=== PATIENT | female | born 1960 | race African-American/Black ===

== ENCOUNTER 2019-10-11 07:38 | Day surgery (SDC) | payer OTHER ==
[2019-10-11 07:58] VITALS: BMI 37.2
[2019-10-11] MEDS ORDERED: ONDANSETRON 4 MG/2 ML VIAL IVPUSH PRN (10:57)
[2019-10-11] MEDS ORDERED: LACTATED RINGERS SOLUTION 1,000 ML IV SCH (11:00)
[2019-10-11] MEDS ORDERED: ceFAZolin SODIUM 1 GM VIAL IVPB ONE (11:30)
[2019-10-11] MEDS ORDERED: GENTAMICIN 80MG PREMIX BAG IVPB ONE (11:30)
[2019-10-11] MEDS ORDERED: GENTAMICIN SO4 80 MG/2 ML VIAL ONE (11:36)
--- NOTE | 2019-10-11 12:00 | CONS ---
DATE OF CONSULTATION: DATE OF DICTATION: 10/11/2019 HISTORY: Patient is a 59-year-old female with history of recurrent urinary tract infections, also history of nocturia, frequency, urgency. She denies dysuria. She also complains of lower abdominal pain. She does have history of bilateral renal cysts. She underwent a cystoscopy, and no tumor was found. The patient has undergone umbilical hernia surgery and appendectomy as well as a hysterectomy. She is G3, P3, postmenopausal. No allergies, ethanolism, or tobacco. PHYSICAL EXAMINATION: General: Reveals a well-developed female in no apparent distress. Abdomen: Soft. There is mild bilateral CVA tenderness. Genitourinary: Genitalia reveals a grade 1 cysto rectocele. John test is negative. Vaginal introitus is dry. Meatus is adequate. DIAGNOSTIC DATA: Patient's BUN 21 and creatinine 0.9. An ultrasound of the kidneys revealed bilateral grade 2 hydroureteronephrosis. Urinalysis was positive for blood. IMPRESSION: At present is a 59-year-old female with bilateral hydroureteronephrosis and micturition disorder. Must rule out cause for hydronephrosis including bilateral reflux or occult stone disease. PLAN: Patient will undergo a cystoscopy, bilateral retrograde pyelogram, possible bilateral ureteroscopies, and bilateral laser lithotripsies with placement of JJ stents. This was explained to patient in detail, and she agrees. REBECCA STEVENS M.D. [id number]
--- NOTE | 2019-10-11 12:21 | OP ---
Operative Note - Note: Operative Date: 10/11/19 Pre-Operative Diagnosis: erlinda. hydronephrosis, hematuria and low back pain Operation: cysto, erlinda. retrograde pyelograms, erlinda. ureteroscopy, rt. ureteral dilation and erlinda. jj stent insertions Findings: rt. upj-obstruction and lt. idiopathic hydronephrosis Post-Operative Diagnosis: Same as Pre-op Surgeon: Christina Diego Anesthesia: General Specimens Removed: urine Estimated Blood Loss (mls): 0 Drains & Tubes with Location: rt. and lt. jj stents 22cm-6f Drains, Volume Out (mls): 0 Blood Volume Replaced (mls): 0 Fluid Volume Replaced (mls): 0 Operative Report Dictated: Yes
--- NOTE | 2019-10-11 13:22 | OP ---
DATE OF OPERATION: 10/11/2019 PREOPERATIVE DIAGNOSES: Bilateral hydronephrosis, persistent microscopic hematuria, chronic low back pain. POSTOPERATIVE DIAGNOSIS: Right ureteropelvic junction obstruction, left idiopathic hydronephrosis, chronic cystitis, squamous metaplasia, atrophic vaginitis. OPERATIVE PROCEDURE: Cystoscopy with dilation, bilateral retrograde pyelograms, bilateral ureteroscopy, right ureteropelvic junction dilation, bilateral JJ stent placement. ANESTHESIA: General. Under above-stated anesthesia, patient is prepped and draped in the usual sterile manner. She is placed in the dorsal lithotomy position Inspection of the external genitalia revealed atrophic vaginalitis. The vaginal vestibule was pale and dry. The meatus was strictured. The meatus was dilated to 28-Cymraes without difficulty or bleeding. Cystoscopy revealed 200 mL of residual urine. This was sent for C and S. Inspection of the bladder revealed squamous metaplasia of the trigone. There was a grade 2 trabeculation throughout the bladder. No overt lesions or calculi were seen. Ureteral orifices were visualized. They were in their normal position with efflux of clear urine bilaterally. A Flexi-Tip catheter was placed into the right ureteral orifice. Contrast 5 mL was injected. This revealed a dilated right renal pelvis with an abrupt obstruction at the level of the ureteropelvic junction. The ureter appeared to be within normal limits and caliber. Delayed films revealed contrast was still in a dilated renal pelvis with calyceal blunting. Ureteroscopy was performed. Lower ureter was within normal limits. Ureteropelvic junction appeared to be stenosed; therefore, a ureteral balloon was inserted. The balloon was inflated to 18-Cymraes and left open for 10 minutes. Afterwards, the ureteroscope was removed. A 22-cm, 6-Cymraes JJ stent was left in place. X-rays confirmed good position of the stent. Ureteroscopy was performed on the left side. The lower ureter was within normal limits. The renal pelvis was dilated. There was no evidence of blockage or stricture. No lesions were found in the renal pelvis. Therefore, the ureteroscope was withdrawn. A 22-cm, 6-Cymraes left JJ stent was left in place. X-rays confirmed good position of the stent. The bladder was emptied. The scope was removed. The patient tolerated the procedure well. She returned to the recovery room in good condition. [id number]
[2019-10-11] MEDS ORDERED: ACETAMINOPHEN INJECTION 100 ML IVPB ONE (16:16)
[2019-10-11] MEDS ORDERED: ACETAMINOPHEN 1000 MG/100 ML VIAL (NON FORMULARY) IVPB ONE (16:22)
[2019-10-11] MEDS ORDERED: PHENAZOPYRIDINE HCL 100 MG TABLET (FP) ONE (16:36)
[2019-10-11 17:12] VITALS: BP 121/70; PULSE 73; TEMP 97.3
--- NOTE | 2019-10-13 12:47 | PATH ---
Cytology Non-Gynecological Report Patient Name: ANDREA HANSON [facility]. Rec. #: [id number] /Age/Gender: 1960 (Age: 59) / F Account: [id number] Location: [facility] SURGICAL Taken: 10/11/2019 Received: 10/12/2019 Reported: 10/13/2019 Physicians: Christina Diego M.D. Specimen(s) Received URINE Clinical History Chronic cystitis Final Diagnosis URINE FOR CYTOLOGY: SATISFACTORY FOR EVALUATION. NEGATIVE FOR HIGH GRADE UROTHELIAL CARCINOMA. SCATTERED UROTHELIAL CELLS, SQUAMOUS EPITHELIAL CELLS PRESENT. RARE RED BLOOD CELLS PRESENT. RARE UROTHELIAL FRAGMENTS PRESENT. FUNGAL FORMS (YEAST) PRESENT. Comment: Urothelial fragments are consistent with prior instrumentation. However, cytologic differential diagnosis includes: lithiasis and a low grade papillary neoplasm. Suggest clinical/radiologic and microbiology studies correlation. Electronically Signed Kamini Cummings M.D. Gross Description Approximately 30 cc of yellow fluid received fresh. One cytofunnel prepared and Pap stained.
== END 2019-10-11 17:29 | disposition home or self-care (01) ==
LOC: JASU-SURG 07:38
PROVIDERS: ATTEND Urology
PROC: 0T788DZ Dilation of Bilateral Ureters with Intraluminal Device, Via Natural or Artificial Opening Endoscopic (ICD-10-PCS; 2019-10-11)
PROC: 0T788DZ Dilation of Bilateral Ureters with Intraluminal Device, Via Natural or Artificial Opening Endoscopic (ICD-10-PCS; principal; 2019-10-11 10:00)
PROC: BT14ZZZ Fluoroscopy of Kidneys, Ureters and Bladder (ICD-10-PCS; 2019-10-11 10:00)
DX: N13.39 Other hydronephrosis (principal); N13.1 Hydronephrosis with ureteral stricture, not elsewhere classified; N30.20 Other chronic cystitis without hematuria; N32.89 Other specified disorders of bladder; N76.89 Other specified inflammation of vagina and vulva
CPT/HCPCS: 87077; 87086; 94760; J0131

== ENCOUNTER 2022-11-26 04:14 | Day surgery (SDC) | payer OTHER ==
[2022-11-24 17:15] VITALS: BMI 36.3
[~2022-11-26 04:14] MED LIST: ACETAMINOPHEN 325 MG TABLET (FP) PO PRN
[2022-11-26] MEDS ORDERED: EPINEPHrine/PF 1 MG/1 ML (1:1,000) AMPULE ONE (07:19)
[2022-11-26] MEDS ORDERED: POVIDONE-IODINE 5% OPHTHALMIC PREP 30 ML SOLUTION ONE (07:20)
[2022-11-26] MEDS ORDERED: LIDOCAINE HCL/PF 1% SDV 5ML VIAL ONE (07:20)
[2022-11-26] MEDS ORDERED: TETRACAINE 0.5% OPHTH SOLN 2 ML BOTTLE ONE (07:20)
[2022-11-26] MEDS ORDERED: KETOROLAC TROMETHAMINE 0.5% EYE DROP 1 DROP DROPS ONE (08:19)
[2022-11-26] MEDS ORDERED: TROPICAMIDE 1% OPHTH SOLN 15 ML BOTTLE ONE (08:19)
[2022-11-26] MEDS ORDERED: OFLOXACIN 0.3% OPHTHALMIC SOLUTION 5 ML BOTTLE ONE (08:19)
[2022-11-26] MEDS ORDERED: PHENYLEPHRINE 2.5% OPTHALMIC DROP 2ML BOTTLE ONE (08:19)
[2022-11-26] MEDS ORDERED: CYCLOPENTOLATE HCL 1% OPHTH SOLN 2 ML BOTTLE ONE (08:19)
[2022-11-26] MEDS: PHENYLEPHRINE 2.5% OPHTH SOLN 15 ML BOTTLE OP SCH ×3 (08:20→08:45)
[2022-11-26] MEDS: TROPICAMIDE 1% OPHTH SOLN 15 ML BOTTLE OP SCH ×3 (08:20→08:44)
[2022-11-26] MEDS: CYCLOPENTOLATE HCL 1% OPHTH SOLN 2 ML BOTTLE OP SCH ×3 (08:20→08:45)
[2022-11-26] MEDS: OFLOXACIN 0.3% OPHTHALMIC SOLUTION 5 ML BOTTLE OP SCH ×3 (08:20→08:45)
[2022-11-26] MEDS: KETOROLAC TROMETHAMINE 0.5% EYE DROP 1 DROP DROPS OP SCH ×3 (08:20→08:45)
[2022-11-26] MEDS ORDERED: MIDAZOLAM HCL 2 MG/2 ML SINGLE DOSE VIAL ONE ×2 (09:41→10:27)
[2022-11-26] MEDS ORDERED: TETRACAINE 0.5% OPHTH SOLN 2 ML BOTTLE TP ONE (10:11)
[2022-11-26] MEDS ORDERED: POVIDONE-IODINE 5% OPHTHALMIC PREP 30 ML SOLUTION OD ONE (10:15)
[2022-11-26] MEDS ORDERED: BSS (NA/CA/MG/K) BALANCED SALT SOLUTION OPHTH SOLN 15 ML BOTTLE OD ONE (10:22)
[2022-11-26] MEDS ORDERED: CHONDROITIN SU A/HYALUR SOD 1 KIT IO ONE (10:23)
[2022-11-26] MEDS ORDERED: LIDOCAINE HCL 1% PRESERVATIVE FREE - 30ML VIAL IO ONE (10:23)
[2022-11-26] MEDS ORDERED: TRYPAN BLUE 0.5 ML DISP.SYRIN IO ONE (10:24)
[2022-11-26] MEDS ORDERED: EPINEPHrine/PF 1 MG/1 ML (1:1,000) AMPULE SQ ONE (10:31)
[2022-11-26] MEDS ORDERED: ACETAMINOPHEN 325 MG TABLET (FP) ONE (11:06)
[2022-11-26 11:39] VITALS: BP 121/74; PULSE 61; RESP 18; TEMP 98.2
== END 2022-11-26 11:47 | disposition home or self-care (01) ==
LOC: JASU-SURG 04:14
PROVIDERS: ATTEND Ophthalmology
PROC: 08RJ3JZ Replacement of Right Lens with Synthetic Substitute, Percutaneous Approach (ICD-10-PCS; principal; 2022-11-26 10:00)
DX: H26.9 Unspecified cataract (principal)
CPT/HCPCS: V2632

== ENCOUNTER 2022-12-10 04:15 | Day surgery (SDC) | payer OTHER ==
[2022-12-09 09:39] VITALS: BMI 36.3
[2022-12-10] MEDS ORDERED: PHENYLEPHRINE 2.5% OPTHALMIC DROP 2ML BOTTLE ONE (07:03)
[2022-12-10] MEDS ORDERED: CYCLOPENTOLATE HCL 1% OPHTH SOLN 2 ML BOTTLE ONE ×2 (07:03→07:04)
[2022-12-10] MEDS ORDERED: KETOROLAC TROMETHAMINE 0.5% EYE DROP 1 DROP DROPS ONE (07:03)
[2022-12-10] MEDS ORDERED: TROPICAMIDE 1% 3 ML EYE DROPS ONE (07:04)
[2022-12-10] MEDS ORDERED: OFLOXACIN 0.3% OPHTHALMIC SOLUTION 5 ML BOTTLE ONE (07:04)
[2022-12-10] MEDS ORDERED: EPINEPHrine/PF 1 MG/1 ML (1:1,000) AMPULE ONE (07:12)
[2022-12-10] MEDS ORDERED: POVIDONE-IODINE 5% OPHTHALMIC PREP 30 ML SOLUTION ONE (07:13)
[2022-12-10] MEDS ORDERED: LIDOCAINE HCL/PF 1% SDV 5ML VIAL ONE (07:13)
[2022-12-10] MEDS ORDERED: TETRACAINE 0.5% OPHTH SOLN 2 ML BOTTLE ONE (07:13)
[2022-12-10 07:16] VITALS: RESP 18
[2022-12-10] MEDS: CYCLOPENTOLATE HCL 1% OPHTH SOLN 2 ML BOTTLE OP SCH ×3 (07:39→08:00)
[2022-12-10] MEDS: TROPICAMIDE 1% OPHTH SOLN 15 ML BOTTLE OP SCH ×3 (07:39→08:00)
[2022-12-10] MEDS: KETOROLAC TROMETHAMINE 0.5% EYE DROP 1 DROP DROPS OP SCH ×3 (07:39→08:00)
[2022-12-10] MEDS: OFLOXACIN 0.3% OPHTHALMIC SOLUTION 5 ML BOTTLE OP SCH ×3 (07:40→08:00)
[2022-12-10] MEDS: PHENYLEPHRINE 2.5% OPHTH SOLN 15 ML BOTTLE OP SCH ×3 (07:40→08:00)
[2022-12-10] MEDS ORDERED: MIDAZOLAM HCL 2 MG/2 ML SINGLE DOSE VIAL ONE (08:42)
[2022-12-10] MEDS ORDERED: TETRACAINE 0.5% OPHTH SOLN 2 ML BOTTLE OS ONE (08:57)
[2022-12-10] MEDS ORDERED: POVIDONE-IODINE 5% OPHTHALMIC PREP 30 ML SOLUTION OS ONE (08:58)
[2022-12-10] MEDS ORDERED: BSS (NA/CA/MG/K) BALANCED SALT SOLUTION OPHTH SOLN 15 ML BOTTLE IO ONE (09:08)
[2022-12-10] MEDS ORDERED: LIDOCAINE HCL 1% PRESERVATIVE FREE - 30ML VIAL IO ONE ×2 (09:09→09:10)
[2022-12-10] MEDS ORDERED: CHONDROITIN SU A/HYALUR SOD 1 KIT IO ONE (09:11)
[2022-12-10] MEDS ORDERED: EPINEPHrine/PF 1 MG/1 ML (1:1,000) AMPULE SQ ONE (09:16)
[2022-12-10] MEDS ORDERED: ACETAMINOPHEN 325 MG TABLET (FP) ONE (09:40)
[2022-12-10 16:35] VITALS: BP 119/73; PULSE 64; TEMP 98.1
== END 2022-12-10 11:22 | disposition home or self-care (01) ==
LOC: JASU-SURG 04:15
PROVIDERS: ATTEND Ophthalmology
PROC: 08RK3JZ Replacement of Left Lens with Synthetic Substitute, Percutaneous Approach (ICD-10-PCS; principal; 2022-12-10 09:00)
DX: H26.9 Unspecified cataract (principal)
CPT/HCPCS: V2632